=== PATIENT | female | born 2000 | race Two or more races ===

== ENCOUNTER 2020-09-06 02:11 | Emergency (ER) | payer OTHER ==
[~2020-09-06] VITALS: Ht 157.5 cm; Wt 78.9 kg
[2020-09-06] MEDS ORDERED: ZITHROMAX500 MG PO (06:18)
[2020-09-06] MEDS ORDERED: ZYNCOF 20-400120 ML PO (06:18)
[2020-09-06] MEDS ORDERED: SYMBICORT 16010.2 GM IH (06:18)
== END 2020-09-06 06:41 | disposition home or self-care (01) ==
LOC: ER 02:11
DX: J45.998 Other asthma (principal); B96.0 Mycoplasma pneumoniae [M. pneumoniae] as the cause of diseases classified elsewhere; Z03.818 Encounter for observation for suspected exposure to other biological agents ruled out; R50.9 Fever, unspecified